=== PATIENT | female | born 1985 | race Caucasian/White ===

== ENCOUNTER → 2017-05-31 | Outpatient (REF) | payer BC | LOC: M LAB REF 17:15 | PROVIDERS: ATTEND Advanced Practice Midwife | DX: Z12.4 Encounter for screening for malignant neoplasm of cervix (principal) ==

== ENCOUNTER → 2017-07-08 | Outpatient (CLI) | payer BC | LOC: M SMT 09:15 | PROVIDERS: ATTEND Obstetrics & Gynecology | DX: O20.0 Threatened abortion (principal) ==

== ENCOUNTER → 2017-07-10 | Outpatient (REF) | payer BC | LOC: M LAB REF 16:42 | PROVIDERS: ATTEND Obstetrics & Gynecology | DX: O20.0 Threatened abortion (principal); Z3A.00 Weeks of gestation of pregnancy not specified ==

== ENCOUNTER → 2017-11-11 | Outpatient (CLI) | payer BC ==
[2017-11-11 13:23] LABS: BASO % 0.3 % (0.0-1.0); EOS % 0.4 % (0.0-3.0); HEMATOCRIT 39.1 % (36.0-47.0); HEMOGLOBIN 13.4 g/dl (12.0-16.0); IMMATURE GRANULOCYTE % 0.8 % (0-3.0); LYMPH # 2.8 10^3/uL (1.5-4.5); LYMPH % 28.4 % (24.0-44.0); MEAN CORPUSCULAR HGB CONC 34.3 g/dl (32.0-36.5); MEAN CORPUSCULAR VOLUME 84.6 fl (80.0-96.0); MONO # 0.7 10^3/uL (0.0-0.8); MONO % 7.5 % (0.0-5.0); NEUTROPHILS # 6.1 10^3/uL (1.8-7.7); NEUTROPHILS % 62.6 % (36.0-66.0); PLATELET COUNT, AUTOMATED 259 10^3/uL (150-450); RED BLOOD COUNT 4.62 10^6/uL (4.00-5.40); RED CELL DISTRIBUTION WIDTH 12.1 % (11.5-14.5); WHITE BLOOD COUNT 9.8 10^3/uL (4.0-10.0)
[2017-11-11 14:15] LABS: RUBELLA IgG QUALITATIVE IMMUNE (IMMUNE)
[2017-11-11 14:17] LABS: HBsAg Prenatal NEGATIVE (NEGATIVE)
[2017-11-11 14:43] LABS: HEPATITIS C VIRUS ABY INDEX < 0.0 INDEX (<0.8)
[2017-11-11 14:44] LABS: HIV 1&2 SCREEN CENTAUR NEGATIVE (NEGATIVE)
[2017-11-11 14:56] LABS: CHLAMYDIA DNA AMPLIFICATION NEGATIVE (NEGATIVE); GC DNA AMPLIFICATION NEGATIVE (NEGATIVE)
== END ==
LOC: M LAB 12:11
DX: Z3A.09 9 weeks gestation of pregnancy (principal); Z34.81 Encounter for supervision of other normal pregnancy, first trimester
CPT/HCPCS: 86762

== ENCOUNTER → 2018-01-10 | Outpatient (CLI) | payer BC | LOC: M SMT 14:22 | DX: Z34.82 Encounter for supervision of other normal pregnancy, second trimester (principal); Z3A.19 19 weeks gestation of pregnancy ==

== ENCOUNTER → 2018-02-05 | Outpatient (CLI) | payer BC | LOC: M SMT 14:29 | DX: O28.3 Abnormal ultrasonic finding on antenatal screening of mother (principal) | CPT/HCPCS: 36415 ==

== ENCOUNTER → 2018-02-12 | Outpatient (CLI) | payer BC | LOC: M RAD 17:33 | DX: Z36.89 Encounter for other specified antenatal screening (principal); Z3A.23 23 weeks gestation of pregnancy | CPT/HCPCS: 76816 ==

== ENCOUNTER → 2018-03-07 | Outpatient (CLI) | payer BC ==
[2018-03-07 17:20] LABS: GLUCOSE CHALLENGE TEST 1 HOUR 121 MG/DL (LESS THAN 140)
[2018-03-07 17:21] LABS: HEMATOCRIT 33.2 % (36.0-47.0); HEMOGLOBIN 11.5 g/dl (12.0-15.5); MEAN CORPUSCULAR HEMOGLOBIN 30.7 pg (27.0-33.0); MEAN CORPUSCULAR HGB CONC 34.6 g/dl (32.0-36.5); MEAN CORPUSCULAR VOLUME 88.5 fl (80.0-96.0); PLATELET COUNT, AUTOMATED 257 10^3/uL (150-450); RED BLOOD COUNT 3.75 10^6/uL (4.00-5.40); WHITE BLOOD COUNT 10.3 10^3/uL (4.0-10.0)
[2018-03-10 08:59] LABS: TYPE AND SCREEN 1 1
== END ==
LOC: M SMT 14:27
PROVIDERS: Orthopaedic Surgery
DX: Z36.89 Encounter for other specified antenatal screening (principal); Z3A.00 Weeks of gestation of pregnancy not specified
CPT/HCPCS: 82950

== ENCOUNTER 2018-03-27 17:21 | Outpatient (CLI) | payer BC ==
[2018-03-28 07:55] LABS: ALBUMIN 2.4 GM/DL (3.2-5.2); ALKALINE PHOSPHATASE 168 U/L (45-117); ALT/SGPT 660 U/L (12-78); AST/SGOT 292 U/L (7-37); BILIRUBIN,TOTAL 1.2 MG/DL (0.2-1.0); TOTAL PROTEIN 6.4 GM/DL (6.4-8.2)
[2018-04-01 00:07] LABS: BILE ACIDS FRACTIONATED 198.8 umol/L (4.7-24.5)
== END 2018-03-28 ==
LOC: M LAB 17:21
DX: Z34.83 Encounter for supervision of other normal pregnancy, third trimester (principal)
CPT/HCPCS: 80076

== ENCOUNTER → 2018-04-01 | Outpatient (CLI) | payer BC ==
[2018-04-01 16:40] LABS: ALBUMIN 2.8 GM/DL (3.2-5.2); ALBUMIN/GLOBULIN RATIO 0.74 (1.00-1.93); ALKALINE PHOSPHATASE 173 U/L (45-117); ALT/SGPT 506 U/L (12-78); AST/SGOT 203 U/L (7-37); BILIRUBIN,DIRECT 0.5 MG/DL (0.0-0.2); BILIRUBIN,TOTAL 0.8 MG/DL (0.2-1.0); TOTAL PROTEIN 6.6 GM/DL (6.4-8.2)
[2018-04-04 14:46] LABS: BILE ACIDS FRACTIONATED 68.9 umol/L (4.7-24.5)
== END ==
LOC: M LAB 15:39
DX: O26.613 Liver and biliary tract disorders in pregnancy, third trimester (principal); Z3A.00 Weeks of gestation of pregnancy not specified
CPT/HCPCS: 80076

== ENCOUNTER → 2018-04-04 | Outpatient (CLI) | payer BC | LOC: M RAD 11:35 | DX: O26.613 Liver and biliary tract disorders in pregnancy, third trimester (principal); Z3A.31 31 weeks gestation of pregnancy | CPT/HCPCS: 76819 ==

== ENCOUNTER → 2018-04-11 | Outpatient (CLI) | payer BC | LOC: M RAD 14:35 | DX: O26.613 Liver and biliary tract disorders in pregnancy, third trimester (principal); Z3A.32 32 weeks gestation of pregnancy | CPT/HCPCS: 76815 ==

== ENCOUNTER → 2018-04-24 | Outpatient (CLI) | payer BC | LOC: M RAD 15:20 | DX: O26.613 Liver and biliary tract disorders in pregnancy, third trimester (principal) | CPT/HCPCS: 76819 ==

== ENCOUNTER 2018-04-28 22:10 | Outpatient (CLI) | payer BC | END 2018-04-29 00:10 | disposition home or self-care (01) | LOC: M LDO 22:10 | DX: O36.8130 Decreased fetal movements, third trimester, not applicable or unspecified (principal); O47.03 False labor before 37 completed weeks of gestation, third trimester; Z3A.34 34 weeks gestation of pregnancy | CPT/HCPCS: 59025 ==

== ENCOUNTER → 2018-04-29 | Outpatient (CLI) | payer BC ==
[2018-05-02 14:14] LABS: BILE ACIDS FRACTIONATED 49.7 umol/L (4.7-24.5)
== END ==
LOC: M SMT 13:41
DX: O26.613 Liver and biliary tract disorders in pregnancy, third trimester (principal); Z3A.00 Weeks of gestation of pregnancy not specified
CPT/HCPCS: 82239

== ENCOUNTER → 2018-05-02 | Outpatient (CLI) | payer BC | LOC: M RAD 14:55 | DX: O26.613 Liver and biliary tract disorders in pregnancy, third trimester (principal); Z3A.35 35 weeks gestation of pregnancy | CPT/HCPCS: 76815 ==

== ENCOUNTER 2018-05-05 16:08 | Outpatient (CLI) | payer BC ==
[2018-05-05] MEDS: BETAMETHASONE SOLUSPAN 6MG/ML INJ 5ML (J0702) IM (16:58)
== END 2018-05-05 17:00 | disposition home or self-care (01) ==
LOC: M LDO 16:08
DX: Z34.82 Encounter for supervision of other normal pregnancy, second trimester (principal); Z3A.00 Weeks of gestation of pregnancy not specified
CPT/HCPCS: J0702

== ENCOUNTER 2018-05-06 16:41 | Outpatient (CLI) | payer BC ==
[2018-05-06] MEDS: BETAMETHASONE SOLUSPAN 6MG/ML INJ 5ML (J0702) IM (17:00)
== END 2018-05-06 17:05 | disposition home or self-care (01) ==
LOC: M LDO 16:41
DX: O60.03 Preterm labor without delivery, third trimester (principal); Z3A.00 Weeks of gestation of pregnancy not specified
CPT/HCPCS: J0702

== ENCOUNTER → 2018-05-08 | Outpatient (REF) | payer BC | LOC: M LAB REF 17:48 | DX: Z34.83 Encounter for supervision of other normal pregnancy, third trimester (principal) | CPT/HCPCS: 87081 ==

== ENCOUNTER → 2018-05-09 | Outpatient (CLI) | payer BC | LOC: M RAD 14:58 | DX: O26.613 Liver and biliary tract disorders in pregnancy, third trimester (principal) | CPT/HCPCS: 76815 ==

== ENCOUNTER → 2019-05-01 | Outpatient (CLI) | payer BC ==
[~2019-05-01] MED LIST: IBUP-1022 PO; PRENTAB9 PO; TYLE325C PO; URSO300C3 PO
[2019-05-01 09:06] LABS: HEMATOCRIT 42.7 % (36.0-47.0); HEMOGLOBIN 14.2 g/dl (12.0-15.5); MEAN CORPUSCULAR HGB CONC 33.3 g/dl (32.0-36.5); MEAN CORPUSCULAR VOLUME 87.3 fl (80.0-96.0); PLATELET COUNT, AUTOMATED 262 10^3/uL (150-450); RED BLOOD COUNT 4.89 10^6/uL (4.00-5.40); WHITE BLOOD COUNT 6.1 10^3/uL (4.0-10.0)
[2019-05-01 09:33] LABS: ALBUMIN 4.1 GM/DL (3.2-5.2); ALT/SGPT 21 U/L (12-78); BILIRUBIN,TOTAL 0.3 MG/DL (0.2-1.0); BLOOD UREA NITROGEN 13 MG/DL (7-18); CALCIUM LEVEL 8.8 MG/DL (8.5-10.1); CARBON DIOXIDE LEVEL 28 MEQ/L (21-32); CHLORIDE LEVEL 105 MEQ/L (98-107); CREATININE FOR GFR 0.72 MG/DL (0.55-1.30); GLOMERULAR FILTRATION RATE > 60.0 (>60); GLUCOSE, FASTING 96 MG/DL (70-100); POTASSIUM SERUM 4.3 MEQ/L (3.5-5.1); SODIUM LEVEL 142 MEQ/L (136-145); TOTAL PROTEIN 7.5 GM/DL (6.4-8.2)
== END ==
LOC: M LAB 07:59
PROVIDERS: ATTEND Physician Assistant
DX: Z00.00 Encounter for general adult medical examination without abnormal findings (principal); Z83.49 Family history of other endocrine, nutritional and metabolic diseases; K76.89 Other specified diseases of liver

== ENCOUNTER → 2019-12-31 | Outpatient (CLI) | payer BC | LOC: M LABSMTC 10:05 | PROVIDERS: ATTEND Family Medicine | DX: Z11.59 Encounter for screening for other viral diseases (principal) | CPT/HCPCS: C9803; U0002 ==

== ENCOUNTER → 2020-08-28 | Outpatient (CLI) | payer BC | LOC: M LABSMTC 08:10 | PROVIDERS: ATTEND Pediatrics | DX: Z20.822 Contact with and (suspected) exposure to COVID-19 (principal) ==

== ENCOUNTER → 2021-03-06 | Outpatient (CLI) | payer BC ==
--- NOTE | 2021-03-06 10:47 | REP ---
INDICATION: RUQ ABD PAIN. COMPARISON: None. TECHNIQUE: Real-time sonographic evaluation of right upper quadrant performed. FINDINGS: The gallbladder demonstrates no evidence of intraluminal sludge or calculi, wall thickening or pericholecystic fluid. There is no intrahepatic or extrahepatic biliary dilatation, common bile duct measures 3 mm in maximum diameter. The liver demonstrates homogeneous echotexture with no gross mass. The pancreas demonstrates homogeneous echotexture with no gross mass. The right kidney demonstrates no hydronephrosis, with a normal size of 10.7 cm in length. There is a cyst laterally of the mid right kidney 1.1 cm in diameter.No free fluid is seen. IMPRESSION: Negative right upper quadrant ultrasound. <Electronically signed by Tyrone Gonzalez > 03/06/21 [id number]
== END ==
LOC: M RAD 08:52
PROVIDERS: ATTEND Surgery
DX: R10.11 Right upper quadrant pain (principal)

== ENCOUNTER → 2021-04-14 | Outpatient (CLI) | payer BC | LOC: M PLALAB 10:49 | PROVIDERS: ATTEND Advanced Practice Midwife | DX: Z34.81 Encounter for supervision of other normal pregnancy, first trimester (principal) ==

== ENCOUNTER → 2021-06-14 | Outpatient (CLI) | payer BC ==
[2021-06-14 11:09] LABS: BASO # 0.1 10^3/uL (0.0-0.2); BASO % 0.5 % (0.0-1.0); EOS # 0.1 10^3/uL (0.0-0.5); EOS % 0.5 % (0.0-3.0); HEMOGLOBIN 12.5 g/dl (12.0-15.5); LYMPH # 2.2 10^3/uL (1.5-5.0); LYMPH % 21.8 % (24.0-44.0); MEAN CORPUSCULAR HEMOGLOBIN 29.9 pg (27.0-33.0); MEAN CORPUSCULAR HGB CONC 33.8 g/dl (32.0-36.5); MEAN CORPUSCULAR VOLUME 88.5 fl (80.0-96.0); MONO # 0.6 10^3/uL (0.0-0.8); MONO % 5.8 % (2.0-8.0); NEUTROPHILS % 69.6 % (36.0-66.0); PLATELET COUNT, AUTOMATED 240 10^3/uL (150-450); RED BLOOD COUNT 4.18 10^6/uL (4.00-5.40); WHITE BLOOD COUNT 10.1 10^3/uL (4.0-10.0)
[2021-06-14 11:43] LABS: ALBUMIN 2.9 GM/DL (3.2-5.2); ALT/SGPT 41 U/L (12-78); BILIRUBIN,TOTAL 0.3 MG/DL (0.2-1.0); BLOOD UREA NITROGEN 12 MG/DL (7-18); CALCIUM LEVEL 8.7 MG/DL (8.5-10.1); CARBON DIOXIDE LEVEL 25 MEQ/L (21-32); CHLORIDE LEVEL 107 MEQ/L (98-107); CREATININE FOR GFR 0.59 MG/DL (0.55-1.30); GLOMERULAR FILTRATION RATE > 60.0 (>60); GLUCOSE, FASTING 72 MG/DL (70-100); POTASSIUM SERUM 3.9 MEQ/L (3.5-5.1); SODIUM LEVEL 139 MEQ/L (136-145); TOTAL PROTEIN 6.7 GM/DL (6.4-8.2)
[2021-06-14 12:29] LABS: HEPATITIS C VIRUS ABY INDEX < 0.0 INDEX (<0.8); HIV 1&2 SCREEN CENTAUR NEGATIVE (NEGATIVE)
[2021-06-14 12:38] LABS: GC DNA AMPLIFICATION NEGATIVE (NEGATIVE)
== END ==
LOC: M PLALAB 08:32
PROVIDERS: ATTEND Advanced Practice Midwife
DX: Z87.59 Personal history of other complications of pregnancy, childbirth and the puerperium (principal); Z3A.00 Weeks of gestation of pregnancy not specified

== ENCOUNTER → 2021-06-14 | Outpatient (CLI) | payer BC ==
--- NOTE | 2021-06-14 10:18 | REP ---
INDICATION: ANATOMY. COMPARISON: None. TECHNIQUE: Real-time sonographic evaluation of the gravid uterus performed. FINDINGS: Estimated gestational age is20 weeks 6 days, EDC 10/26/2021. Today's measurements indicate appropriate growth. Presentation: Variable Placenta posterior, grade 0, without evidence of placenta previa. heart rate is recorded at 155 beats per minute. Amniotic fluid is subjectively normal. Closed cervical length is measured at 4.4 cm. Biometry chart: BPD: 50 mm, 21 weeks 1 days, 57th percentile. HC: 190 mm, 21 weeks 2 days, 62nd percentile AC: 167 mm, 21 weeks 5 days, 69th percentile Femur length: 34 mm, 20 weeks 6 days, 49th percentile HC to AC ratio: 1.14, normal range 1.06-1.24. Estimated weight: 415g, 70th percentile. anatomy: Cranium: Grossly normal Lateral Ventricles/Choroid Plexus: Grossly normal Posterior Fossa/Cerebellum: Grossly normal Nose/lips/profile: Grossly normal Four chamber heart: Grossly normal Right ventricular outflow tract: Grossly normal Left ventricular outflow tract: Grossly normal Left-sided stomach: Grossly normal Kidneys: Grossly normal Bladder: Grossly normal Cord Insertion: Grossly normal 3 vessel cord: Grossly normal Spine: Grossly normal IMPRESSION: Viable single intrauterine gestation as above. <Electronically signed by Tyrone Gonzalez > 06/14/21 1012
== END ==
LOC: M WHC 07:06
PROVIDERS: ATTEND Obstetrics & Gynecology
DX: O26.22 Pregnancy care for patient with recurrent pregnancy loss, second trimester (principal); Z3A.20 20 weeks gestation of pregnancy

== ENCOUNTER 2021-07-17 06:40 | Outpatient (RCR) | payer SELFPAY | END 2021-07-17 15:00 | disposition home or self-care (01) | LOC: M EMP 06:40 | PROVIDERS: ATTEND Pediatrics | DX: Z11.52 Encounter for screening for COVID-19 (principal) | CPT/HCPCS: U0002 ×8 ==

== ENCOUNTER → 2021-07-18 | Outpatient (REF) ==
[~2021-07-18] MED LIST changes: +ACET-683 PO; +COLA100C5 PO; +URSO1TAB8
== END ==
LOC: M EMP 07:48
PROVIDERS: ATTEND Family Medicine
DX: Z11.52 Encounter for screening for COVID-19 (principal)

== ENCOUNTER → 2021-07-26 | Outpatient (CLI) | payer BC ==
[2021-07-26 11:03] LABS: HEMATOCRIT 35.3 % (36.0-47.0); HEMOGLOBIN 11.8 g/dl (12.0-15.5); MEAN CORPUSCULAR HEMOGLOBIN 29.3 pg (27.0-33.0); MEAN CORPUSCULAR HGB CONC 33.4 g/dl (32.0-36.5); MEAN CORPUSCULAR VOLUME 87.6 fl (80.0-96.0); PLATELET COUNT, AUTOMATED 249 10^3/uL (150-450); RED BLOOD COUNT 4.03 10^6/uL (4.00-5.40); WHITE BLOOD COUNT 7.4 10^3/uL (4.0-10.0)
== END ==
LOC: M LAB 09:16
PROVIDERS: ATTEND Obstetrics & Gynecology
DX: Z34.82 Encounter for supervision of other normal pregnancy, second trimester (principal)
CPT/HCPCS: 36415; 82950; 85027; 86850; 86900; 86901; J2790

== ENCOUNTER → 2021-08-07 | Outpatient (CLI) | payer BC | LOC: M LAB 12:28 | PROVIDERS: ATTEND Obstetrics & Gynecology | DX: O99.712 Diseases of the skin and subcutaneous tissue complicating pregnancy, second trimester (principal); Z3A.00 Weeks of gestation of pregnancy not specified ==

== ENCOUNTER → 2021-08-08 | Outpatient (CLI) | payer BC ==
[~2021-08-08] MED LIST changes: -ACET-683 PO; -COLA100C5 PO; -URSO1TAB8
[2021-08-08 15:53] LABS: ALBUMIN 2.3 GM/DL (3.2-5.2); ALT/SGPT 416 U/L (12-78); BILIRUBIN,TOTAL 2.4 MG/DL (0.2-1.0); BLOOD UREA NITROGEN 7 MG/DL (7-18); CALCIUM LEVEL 8.7 MG/DL (8.5-10.1); CARBON DIOXIDE LEVEL 23 MEQ/L (21-32); CHLORIDE LEVEL 106 MEQ/L (98-107); CREATININE FOR GFR 0.56 MG/DL (0.55-1.30); GLOMERULAR FILTRATION RATE > 60.0 (>60); GLUCOSE, FASTING 67 MG/DL (70-100); POTASSIUM SERUM 3.8 MEQ/L (3.5-5.1); SODIUM LEVEL 138 MEQ/L (136-145); TOTAL PROTEIN 6.3 GM/DL (6.4-8.2)
== END ==
LOC: M PLALAB 12:59
PROVIDERS: ATTEND Obstetrics & Gynecology
DX: O99.712 Diseases of the skin and subcutaneous tissue complicating pregnancy, second trimester (principal); Z3A.00 Weeks of gestation of pregnancy not specified

== ENCOUNTER → 2021-09-15 | Outpatient (REF) | payer BC | LOC: M SFHCWAGY 09:59 | PROVIDERS: ATTEND Advanced Practice Midwife | DX: O26.613 Liver and biliary tract disorders in pregnancy, third trimester (principal); Z3A.00 Weeks of gestation of pregnancy not specified ==

== ENCOUNTER 2021-10-05 12:50 | Inpatient (IN) | payer BC ==
[2021-10-05] VITALS (12 sets, daily range): BP systolic 105–126; BP diastolic 57–79
[~2021-10-05] VITALS: Ht 160 cm; Wt 72.7 kg
[2021-10-05 13:54] LABS: HEMATOCRIT 35.3 % (36.0-47.0); HEMOGLOBIN 12.1 g/dl (12.0-15.5); MEAN CORPUSCULAR HEMOGLOBIN 28.6 pg (27.0-33.0); MEAN CORPUSCULAR HGB CONC 34.3 g/dl (32.0-36.5); MEAN CORPUSCULAR VOLUME 83.5 fl (80.0-96.0); PLATELET COUNT, AUTOMATED 287 10^3/uL (150-450); RED BLOOD COUNT 4.23 10^6/uL (4.00-5.40); WHITE BLOOD COUNT 10.5 10^3/uL (4.0-10.0)
[2021-10-05] MEDS ORDERED: CARBOPROST TROMETHAMINE 250 MCG/ML AMP IM PRN (14:00)
[2021-10-05] MEDS ORDERED: OXYTOCIN DRIP 30 UNITS in IV 1 EA IV PRN (14:00)
[2021-10-05] MEDS ORDERED: METHYLERGONOVINE MALEATE 0.2 MG/ML VIAL (J2210) IM PRN (14:00)
[2021-10-05] MEDS ORDERED: TRANEXAMIC ACID INJection 1,000 MG in NS 100 ML IV PRN (14:00)
[2021-10-05] MEDS ORDERED: LIDOCAINE 1% MDV 20ML VIAL INFIL PRN (14:00)
[2021-10-05] MEDS: miSOPROStol 50MCG 1/2 TABLET PO SCH ×2 (14:25→18:35)
[2021-10-05] MEDS ORDERED: URSO1TAB8 (14:52)
[2021-10-05] MEDS ORDERED: OXYTOCIN DRIP 30 UNITS in IV 1 EA IV SCH (21:20)
[2021-10-05] MEDS: LR 1,000 ML IV SCH (22:47)
[2021-10-06] VITALS (21 sets, daily range): BP systolic 97–134; BP diastolic 55–91
[2021-10-06] MEDS ORDERED: FENTANYL 2MCG/ML ROPIVACAINE 0.2% IN 0.9% NACL 100ML IVBAG As Ordered ONE (00:06)
[2021-10-06] MEDS ORDERED: diphenhydrAMINE 50MG/ML VIAL (J1200) IV PRN (00:20)
[2021-10-06] MEDS ORDERED: LACTATED RINGER'S 1000 ML IV PRN (00:20)
[2021-10-06] MEDS ORDERED: EPIDURAL/PCA KEYS XX PRN (00:20)
[2021-10-06] MEDS ORDERED: ONDANSETRON 4MG/2ML VIAL IV PRN (00:20)
[2021-10-06] MEDS ORDERED: FENTANYL/ROPIVACAINE/NACL BAG 100 ML EPIDURAL SCH (00:20)
[2021-10-06] MEDS ORDERED: ePHEDrine SULFATE 25 MG/5 ML(5MG/ML) SYRINGE IV PRN (00:20)
[2021-10-06] MEDS ORDERED: NALOXONE INJ 0.4MG/1ML VIAL (J2310 PER 1MG) IV PRN (00:20)
[2021-10-06] MEDS ORDERED: REFRIGERATOR IV KEYS XX PRN (00:20)
[2021-10-06] MEDS ORDERED: EPIDURAL COMMENT XX SCH (00:20)
[2021-10-06] MEDS: LR 1,000 ML IV SCH (00:40)
[2021-10-06 03:34] LABS: CORD GAS ABE A -5.9; CORD GAS ABE V -3.4; CORD GAS O2 SAT A 80.1 %; CORD GAS O2 SAT V 84.6 %; CORD GAS PCO2 A 52.1 mmHg; CORD GAS PCO2 V 40.8 mmHg; CORD GAS PH A 7.244 UNITS; CORD GAS PH V 7.349 UNITS; CORD GAS PO2 A 39.6 mmHg; CORD GAS PO2 V 38.8 mmHg; CORD GAS SBC A 19.3 MEQ/L; CORD GAS SBC V 21.3 MEQ/L; CORD GAS TCO2 A 23.6 MEQ/L; CORD GAS TCO2 V 23.2 MEQ/L
[2021-10-06] MEDS ORDERED: DOCUSATE SODIUM 100MG CAPSULE PO PRN (04:15)
[2021-10-06] MEDS ORDERED: RHOGAM 300 MCG (1500 IU) INJ (J2790) IM SCH (04:15)
[2021-10-06] MEDS ORDERED: MOM 30ML SUSPENSION UDC PO PRN (04:15)
[2021-10-06] MEDS ORDERED: MEASLES,MUMPS,RUBELLA VACCINE INJ (MMR-II) (90707) SC SCH (04:15)
[2021-10-06] MEDS ORDERED: METHYLERGONOVINE MALEATE 0.2 MG TAB PO PRN (04:15)
[2021-10-06] MEDS ORDERED: DIBUCAINE 1% OINTMENT 30GM TOP PRN (04:15)
[2021-10-06] MEDS ORDERED: IBUPROFEN 600MG TAB PO PRN (04:15)
[2021-10-06] MEDS ORDERED: ACETAMINOPHEN TAB 650MG DOSE (2X325MG) PO PRN (04:15)
[2021-10-06] MEDS ORDERED: ANUSOL HC CREAM 30GM TOP PRN (04:15)
[2021-10-06] MEDS ORDERED: OXYTOCIN DRIP 30 UNITS in IV 1 EA IV SCH (04:15)
[2021-10-06] MEDS: PRENATAL VITAMINS CHEWABLE TABLET PO SCH (07:56)
[2021-10-06] MEDS: IBUPROFEN 800 MG TAB PO PRN ×2 (10:04→18:38)
[2021-10-06] MEDS: ACETAMINOPHEN 500 MG TAB PO PRN ×2 (15:22→22:22)
[2021-10-07 05:54] VITALS: BP 104/66
[2021-10-07] MEDS: PRENATAL VITAMINS CHEWABLE TABLET PO SCH (09:48)
[2021-10-07] MEDS: ACETAMINOPHEN 500 MG TAB PO PRN (09:49)
[2021-10-07] MEDS ORDERED: ACET-683 PO (11:38)
[2021-10-07] MEDS ORDERED: COLA100C5 PO (11:38)
[2021-10-07] MEDS ORDERED: IBUP-1022 PO (11:38)
== END 2021-10-07 14:00 | disposition home or self-care (01) | DRG 560 ==
LOC: M LDI 12:50 → M OBS 10-06 05:16
PROVIDERS: ADMIT Obstetrics & Gynecology; ATTEND Obstetrics & Gynecology
PROC: 10E0XZZ Delivery of Products of Conception, External Approach (ICD-10-PCS; principal; 2021-10-06)
PROC: 0KQM0ZZ Repair Perineum Muscle, Open Approach (ICD-10-PCS; 2021-10-06)
DX: O26.62 Liver and biliary tract disorders in childbirth (principal); Z37.0 Single live birth; Z3A.37 37 weeks gestation of pregnancy; K83.1 Obstruction of bile duct; O70.1 Second degree perineal laceration during delivery

== ENCOUNTER 2021-10-10 07:55 | Outpatient (RCR) ==
[~2021-10-10 07:55] MED LIST changes: +ACET-683 PO; +COLA100C5 PO; +URSO1TAB8
== END 2021-10-16 08:00 | disposition home or self-care (01) ==
LOC: M EMP 07:55
PROVIDERS: ATTEND Pediatrics
DX: Z20.822 Contact with and (suspected) exposure to COVID-19 (principal)

== ENCOUNTER 2022-02-07 12:16 | Emergency (ER) | payer BC ==
[~2022-02-07] VITALS: Ht 157.5 cm; Wt 61.8 kg
[2022-02-07 13:40] LABS: BASO % 0.5 % (0.0-1.0); EOS % 0.3 % (0.0-3.0); HEMATOCRIT 42.8 % (36.0-47.0); HEMOGLOBIN 14.4 g/dl (12.0-15.5); LYMPH # 2.4 10^3/uL (1.5-5.0); LYMPH % 32.9 % (24.0-44.0); MEAN CORPUSCULAR HEMOGLOBIN 28.2 pg (27.0-33.0); MEAN CORPUSCULAR HGB CONC 33.6 g/dl (32.0-36.5); MEAN CORPUSCULAR VOLUME 83.9 fl (80.0-96.0); MONO # 0.5 10^3/uL (0.0-0.8); MONO % 6.3 % (2.0-8.0); NEUTROPHILS # 4.4 10^3/uL (1.5-8.5); NEUTROPHILS % 59.6 % (36.0-66.0); PLATELET COUNT, AUTOMATED 300 10^3/uL (150-450); WHITE BLOOD COUNT 7.4 10^3/uL (4.0-10.0)
[2022-02-07 14:23] LABS: FREE T4 1.12 NG/DL (0.76-1.46); MAGNESIUM LEVEL 2.5 MG/DL (1.8-2.4); THYROID STIMULATING HORMONE 0.74 uIU/ML (0.358-3.740)
[2022-02-07 15:48] VITALS: BP 130/78
== END 2022-02-07 15:58 | disposition home or self-care (01) ==
LOC: M ED 12:16
DX: R42 Dizziness and giddiness (principal)

== ENCOUNTER → 2022-03-07 | Outpatient (CLI) | payer OTHER | LOC: M WUC 09:53 | PROVIDERS: ATTEND Family Medicine Adult Medicine | DX: Z11.1 Encounter for screening for respiratory tuberculosis (principal) ==